=== PATIENT | female | born 1965 | race Caucasian/White ===

== ENCOUNTER 2018-12-29 15:33 | Inpatient (IN) | payer MEDICAID ==
[~2018-12-29] VITALS: Ht 162.6 cm; Wt 68.5 kg
[2018-12-29 15:49] VITALS: BP 139/76
--- NOTE | 2018-12-29 15:58 | NUR ---
PT AMBULATED TO ER BED 05
--- NOTE | 2018-12-29 16:03 | NUR ---
53 Y/O F BIB GRANDDAUGHTER WITH C/O LOW HEMOGLOBIN. PT WAS SENT HER FROM [facility] FOR LOW HEMOGLOBIN AT 6.3. PT STATES SHE HAS BEEN FEELING TIRED X 3 WEEKS AND JUST WANTS TO SLEEP. PT DENIES N/V/D; AAOX4, PERRL, WITH EVEN AND STEADY GAIT; LUNGS CLEAR BL, BREATHING UNLABORED; HR EVEN AND REGULAR, BL PERIPHERAL PULSES PRESENT; BS ACTIVE X4, NO TENDERNESS TO PALPATION, NO HEPATOSPLENOMEGALLY PALPATED, RESONANT TO PERCUSSION; PT DENIES ANY FEVER, CP, SOB, OR COUGH AT THIS TIME; PT STATES 0/10 PAIN AT THIS TIME; VSS; PATIENT POSITIONED FOR COMFORT; HOB ELEVATED; BEDRAILS UP X2; BED DOWN. PMH: ANEMIA RX: MEDROXYPROGESTERONE, AMOX-CLAV ( FOR EAR INFECTION)
[2018-12-29 16:34] LABS: BASOPHILS % (AUTO) 0.3 % (0.0-2.0); EOSINOPHILS # (AUTO) 0.1 K/uL (0-0.4); EOSINOPHILS % (AUTO) 1.8 % (0.0-4.0); LYMPHOCYTES # (AUTO) 2.3 K/uL (2.5-16.5); LYMPHOCYTES % (AUTO) 27.5 % (20.5-51.1); MEAN CORPUSCULAR HEMOGLOBIN 20 pg (27-31); MEAN CORPUSCULAR HGB CONC 29 g/dL (33-37); MEAN CORPUSCULAR VOLUME 68.1 fL (80-94); MONOCYTES # (AUTO) 0.4 K/uL (0.8-1.0); MONOCYTES % (AUTO) 5.2 % (1.7-9.3); NEUTROPHILS # (AUTO) 5.4 K/uL (1.8-7.7); NEUTROPHILS % (AUTO) 65.2 % (42.2-75.2); PLATELET COUNT (AUTO) 477 K/uL (140-450); RED BLOOD CELL COUNT(AUTO) 2.74 MIL/uL (4.20-5.40); RED CELL DISTRIBUTION WIDTH 16.7 % (11.6-13.7); WHITE BLOOD COUNT (AUTO) 8.3 K/uL (4.8-10.8)
[2018-12-29 16:56] LABS: HEMATOCRIT 18.6 % (36-48); HEMOGLOBIN 5.4 g/dL (12.0-16.0)
[2018-12-29 16:57] LABS: ANION GAP 14.9 (8-16); POTASSIUM 3.9 mmol/L (3.5-5.1)
[2018-12-29 16:58] LABS: ALBUMIN 3.6 g/dL (3.4-5.0); CREATININE 0.6 mg/dL (0.6-1.3); TOTAL BILIRUBIN 0.3 mg/dL (0.0-1.0)
--- NOTE | 2018-12-29 17:00 | NUR ---
PT RESTING IN BED, HANDS CROSSED, LEGS UNCROSSED TALKING WITH DAUGHTER. NO S/S OF DISTRESS NOTED.
[2018-12-29 17:02] LABS: PROTHROMBIN TIME 9.6 secs (10.8-13.4)
--- NOTE | 2018-12-29 17:24 | NUR ---
US AT BEDSIDE.
[2018-12-29] MEDS ORDERED: ONDANSETRON 4 MG/2 ML VIAL IM/IVP PRN (17:35)
[2018-12-29] MEDS ORDERED: ACETAMINOPHEN 325 MG TAB PO PRN (17:35)
[2018-12-29] MEDS ORDERED: DOCUSATE SODIUM 100 MG GELCAP PO PRN (17:35)
[2018-12-29] MEDS ORDERED: MORPHINE SULFATE 2 MG/ML SYR IVP PRN (17:35)
[2018-12-29] MEDS ORDERED: OFLO5SOL27 OT (17:36)
[2018-12-29] MEDS ORDERED: MECL-272 PO (17:36)
[2018-12-29] MEDS ORDERED: ONDA-24 PO (17:38)
[2018-12-29] MEDS ORDERED: MEDR10TA33 PO (17:39)
[2018-12-29] MEDS ORDERED: AMOX1TAB15 PO (17:40)
--- NOTE | 2018-12-29 17:48 | NUR ---
FLEB AT BEDSIDE STATING THEY NEED TO "RE-DRAW FOR CONFIRMATION OF BLOOD TYPE."
--- NOTE | 2018-12-29 18:05 | NUR ---
RECEIVED REPORT FROM [facility] EMERGENCY ROOM NURSE FOR CONTINUITY OF CARE. PT IN STABLE CONDITION.
--- NOTE | 2018-12-29 18:09 | NUR ---
Patient will be admitted to care of DR. DOMÍNGUEZ. Admited to TELE. Will go to room 119B. Belongings list completed. Report to TYLER COLVIN.
[2018-12-29 18:10] VITALS: BP 128/56
[2018-12-29 18:12] LABS: APPEARANCE,URINE CLEAR (CLEAR); BILIRUBIN,URINE NEGATIVE (NEGATIVE); BLOOD, URINE NEGATIVE (NEGATIVE); COLOR,URINE YELLOW (YELLOW); LEUKOCYTE ESTERASE ,URINE NEGATIVE (NEGATIVE); NITRITE, URINE NEGATIVE (NEGATIVE); UGLUCOSE NEGATIVE (NEGATIVE)
[2018-12-29 18:13] LABS: CHOL/HDL RATIO 3.4 (1-4.5); MAGNESIUM 2.2 mg/dL (1.8-2.4); PHOSPHORUS 3.7 mg/dL (2.5-4.9)
[2018-12-29 18:17] LABS: BARBITURATE, URINE NEG. ng/ml (NEG <=200); BENZODIAZEPINE, URINE NEG. ng/mL (NEG <=200); CANNABINOID, URINE NEG. ng/mL (NEG <=50); COCAINE, URINE NEG. ng/mL (NEG <=300); OPIATE, URINE NEG. ng/mL (NEG <=2000); PHENCYCLIDINE SCREEN,URINE NEG. ng/mL (NEG <=25)
--- NOTE | 2018-12-29 19:15 | NUR ---
GAVE REPORT TO INSTRUCTOR OF EDUCATION NURSE FOR CONTINUITY OF CARE. PT IN STABLE CONDITION.
[2018-12-29 19:30] VITALS: BP 103/55
--- NOTE | 2018-12-29 19:35 | NUR ---
PATIENT IS AWAKE, ALERT, RESPIRATION EVEN AND UNLABORED ON ROOM AIR. DENIES PAIN AND DISCOMFORT. FAMILY IS AT BEDSIDE. SKIN IS WARM AND DRY. IV IS INTACT AND PATENT. PLAN OF CARE WAS DISCUSSED. ORIENT PATIENT TO ROOM, STAFF, AND CALL LIGHT. BED IS IN LOW POSITION. CALL LIGHT WITHIN REACH. WILL CONTINUE TO MONITOR
[2018-12-29] MEDS ORDERED: MECLIZINE 25 MG TAB PO PRN (20:10)
[2018-12-29] MEDS ORDERED: cefTRIAXone 1,000 MG VIAL ONE (20:44)
[2018-12-29] MEDS: NACL 0.9% 1,000 ML IV SCH (20:52)
[2018-12-29] MEDS: medroxyPROGESTERone 10 MG TAB PO SCH (21:00)
--- NOTE | 2018-12-29 21:00 | NUR ---
MEDICATION PROVERA, NOT AVAILABLE, NOTIFIED PT FAMILY TO BRING MEDICATION TOMORROW, NOTIFIED DR. FRAZIER REGARDING MEDICATION NOT AVAILABLE, STATED UNDERSTANDING, AND OK TO NOT GIVE TONIGHT. PT RESTING ON BED, NO DISTRESS NOTED, CALL LIGHT WITHIN REACH, WILL CONTINUE TO MONITOR.
--- NOTE | 2018-12-29 21:21 | NUR ---
PATIENT WENT TO CT IN STABLE CONDITION
--- NOTE | 2018-12-29 21:40 | NUR ---
PATIENT COMPLAIN OF HEADACHE 7/10 PAIN. PRN NORCO ADMINISTERED. CALL LIGHT WITHIN REACH. WILL CONTINUE TO MONITOR
[2018-12-29] MEDS: HYDROcodone/APAP 7.5/325 MG 1 TAB PO PRN (21:42)
--- NOTE | 2018-12-29 21:45 | NUR ---
PATIENT CAME BACK FROM CT. PATIENT IS STABLE AT THIS TIME NO DISTRESS NOTED. CALL LIGHT WITHIN REACH.
--- NOTE | 2018-12-29 22:00 | NUR ---
FIRST UNIT OF BLOOD TRANSFUSION STARTED. PATIENT VITAL SIGNS STABLE. CALL LIGHT WITHIN REACH
[2018-12-30] VITALS: BP 104/52
--- NOTE | 2018-12-30 01:00 | NUR ---
FIRST UNIT OF BLOOD TRANSFUSION RECEIVED. NO ADVERSE REACTION NOTED. PATIENT IS STABLE. WILL CONTINUE TO MONITOR.
[2018-12-30 04:00] VITALS: BP 155/85
--- NOTE | 2018-12-30 04:52 | NUR ---
PATIENT RECEIVED TOTAL OF 2 UNITS OF BLOOD WITH NO ADVERSE REACTION. DR WAS NOTIFIED. PATIENT IS STABLE. CALL LIGHT WITHIN REACH. WILL CONTINUE TO MONITOR.
[2018-12-30 06:55] LABS: BASOPHILS % (AUTO) 0.4 % (0.0-2.0); EOSINOPHILS # (AUTO) 0.1 K/uL (0-0.4); EOSINOPHILS % (AUTO) 2.5 % (0.0-4.0); HEMATOCRIT 25.5 % (36-48); HEMOGLOBIN 7.9 g/dL (12.0-16.0); LYMPHOCYTES # (AUTO) 2.1 K/uL (2.5-16.5); LYMPHOCYTES % (AUTO) 35.2 % (20.5-51.1); MEAN CORPUSCULAR HEMOGLOBIN 23 pg (27-31); MEAN CORPUSCULAR HGB CONC 31 g/dL (33-37); MEAN CORPUSCULAR VOLUME 75.9 fL (80-94); MONOCYTES # (AUTO) 0.4 K/uL (0.8-1.0); MONOCYTES % (AUTO) 6.5 % (1.7-9.3); NEUTROPHILS # (AUTO) 3.3 K/uL (1.8-7.7); NEUTROPHILS % (AUTO) 55.4 % (42.2-75.2); PLATELET COUNT (AUTO) 361 K/uL (140-450); RED BLOOD CELL COUNT(AUTO) 3.36 MIL/uL (4.20-5.40); RED CELL DISTRIBUTION WIDTH 21.5 % (11.6-13.7); WHITE BLOOD COUNT (AUTO) 5.9 K/uL (4.8-10.8)
--- NOTE | 2018-12-30 07:24 | NUR ---
RECEIVED PT FROM AM SHIFT NURS. PATIENT AWAKE, ALERT. RESPIRATION EVEN, UNLABORED ON ROOM AIR. SKIN DRY AND WARM. IV PATENT AND INTACT. DENIED SOB, DIZZINESS, OR VAGINAL BLEEDING. NO COMPLAINTS OF PAIN AND NO BLEEDING NOTED.PLAN OF CARE WAS DISCUSSED WITH PATIENT AND FAMILY. BED AT LOW POSITION, SIDE RAILS UP. CALL LIGHT WITHIN REACH
[2018-12-30 07:30] LABS: ANION GAP 8.3 (8-16); CARBON DIOXIDE 25.6 mmol/L (21-32); CREATININE 0.7 mg/dL (0.6-1.3); MAGNESIUM 2.2 mg/dL (1.8-2.4); PHOSPHORUS 4.2 mg/dL (2.5-4.9); POTASSIUM 4.9 mmol/L (3.5-5.1); TOTAL BILIRUBIN 0.2 mg/dL (0.0-1.0)
--- NOTE | 2018-12-30 07:33 | NUR ---
ENDORSED PATIENT TO GABRIEL GARCIA NURSE FOR CONTINUITY OF CARE. PATIENT IS STABLE AT THIS TIME.
--- NOTE | 2018-12-30 07:40 | NUR ---
PATIENT WAS AWAKE, ALERT. RESPIRATION EVEN, UNLABOR ON ROOM AIR. SKIN DRY AND WARM. IV PATENT AND INTACT. DENIED SOB, DIZZINESS, OR VAGINAL BLEEDING. COMPLAINED OF HEADACHE 5/10, WILL MEDICATE PER ORDER. PLAN OF CARE WAS DISCUSSED WITH PATIENT AND FAMILY. BED AT LOW POSITION, SIDE RAILS UP. CALL LIGHT WITHIN REACH
[2018-12-30 08:00] VITALS: BP 116/53
[2018-12-30 08:14] LABS: T4 (THYROXINE) 6.2 ug/dL (4.5-12.0)
[2018-12-30 08:14] LABS: FOLIC ACID 10.2 ng/mL (>3.0)
[2018-12-30] MEDS ORDERED: SODIUM FERRIC GLUCONATE 125 MG in NACL 0.9% 100 ML IV SCH ×2 (09:00→13:15)
[2018-12-30] MEDS: medroxyPROGESTERone 10 MG TAB PO SCH ×2 (09:02→21:05)
[2018-12-30] MEDS: LACTOBACILLUS RHAMNOSUS GG 1 EACH CAP PO SCH (09:03)
[2018-12-30] MEDS: HYDROcodone/APAP 7.5/325 MG 1 TAB PO PRN ×2 (09:03→16:32)
--- NOTE | 2018-12-30 09:30 | NUR ---
PATIENT AMBULATED TO BATHROOM UNASSISTED, STEADY GAIT. MEDS WERE GIVEN PER ORDER. NO DISTRESS NOTED AT THIS TIME. FAMILY AT BEDSIDE. CALL LIGHT WITHIN REACH
[2018-12-30 12:00] VITALS: BP 110/57
--- NOTE | 2018-12-30 12:28 | NUR ---
PATIENT WAS AWAKE, EATING LUNCH COMFORTABLY. RESPIRATION EVEN, UNLABOR ON ROOM AIR. DENIED PAIN AT THIS TIME. NO DISTRESS NOTED. FAMILY AT BEDSIDE. CALL LIGHT WITHIN REACH
--- NOTE | 2018-12-30 14:30 | NUR ---
PATIENT WAS SLEEPING COMFORTABLY. RESPIRATION EVEN, UNLABOR ON ROOM AIR. NO DISTRESS NOTED AT THIS TIME
[2018-12-30 16:00] VITALS: BP 108/57
[2018-12-30 16:07] LABS: HEMATOCRIT 24.7 % (36-48); HEMOGLOBIN 7.7 g/dL (12.0-16.0)
--- NOTE | 2018-12-30 16:10 | NUR ---
PATIENT WAS AWAKE, ALERT. RESPIRATION EVEN, UNLABOR ON ROOM AIR. COMPLAINED OF HEADACHE 5/10, WILL MEDICATE PER ORDER. FAMILY AT BEDSIDE. CALL LIGHT WITHIN REACH
[2018-12-30] MEDS: NACL 0.9% 1,000 ML IV SCH (17:35)
--- NOTE | 2018-12-30 18:04 | NUR ---
PATIENT WAS AWAKE, EATING DINNER COMFORTABLY. RESPIRATION EVEN, UNLABOR ON ROOM AIR. DENIED HAVING ANY BM TODAY. NO DISTRESS NOTED. CALL LIGHT WITHIN REACH. FAMILY AT BEDSIDE
--- NOTE | 2018-12-30 19:12 | NUR ---
ENDORSEMENT GIVEN TO THORACIC MEDICINE SPECIALIST NURSE. PATIENT IS STABLE AT THIS TIME
[2018-12-30 20:00] VITALS: BP 105/58
[2018-12-30] MEDS ORDERED: ZOLPIDEM 5 MG TAB PO SCH (21:00)
--- NOTE | 2018-12-30 21:00 | NUR ---
PT MEDICATED, PT TOLERATED MEDS WELL. NO SOB NOTED. WILL CONTINUE TO MONITOR
[2018-12-31] VITALS: BP 106/56
[2018-12-31 04:00] VITALS: BP 105/58
--- NOTE | 2018-12-31 04:30 | NUR ---
PT SLEEPING, NO COMPLAINTS AT THIS TIME. PT IN STABLE CONDITION Addendum: 12/31/18 at 0756 by Molly Castanon RN WRONG TIME
--- NOTE | 2018-12-31 04:31 | NUR ---
PT SLEEPING. NO BLEEDING NOTED. NO COMPLAINTS. PT IN STABLE CONDITION
[2018-12-31] MEDS ORDERED: FERR325E14 PO (05:53)
[2018-12-31] MEDS ORDERED: DOCU-299 PO (05:54)
--- NOTE | 2018-12-31 06:25 | NUR ---
PATIENT HAS BEEN SCREENED AND CATEGORIZED LOW NUTRITION RISK. PATIENT WILL BE SEEN WITHIN 7 DAYS OF ADMISSION. 01/04/19 DAVIDSON BECKHAM MS, RDN
--- NOTE | 2018-12-31 06:26 | NUR ---
PATIENT HAS BEEN SCREENED AND CATEGORIZED MODERATE NUTRITION RISK. PATIENT WILL BE SEEN WITHIN 3-5 DAYS OF ADMISSION. 01/01/19-01/03/19 DAVIDSON BECKHAM MS, RDN
--- NOTE | 2018-12-31 07:01 | NUR ---
NO BM BY PATIENT, NO OCCULT BLOOD COLLECTED
--- NOTE | 2018-12-31 07:23 | NUR ---
ENDORSED PT TO AM SHIFT FOR CONTINUITY OF CARE. PT IN STABLE CONDITION
--- NOTE | 2018-12-31 07:30 | NUR ---
RECEIVED PT FROM PROFESSIONAL GOLF TOURNAMENT PLAYER NURSE, PT IS AWAKE AND LYING ON THE BED WITH SIDE RAILS UP AND CALL LIGHT WITHIN REACH, PT HAS AN IV LINE ON THE RT AC G.20 ON SALINE LOCK, PT DENIES PAIN AND NO SOB NOTED, WILL CONTINUE TO MONITOR PT.
[2018-12-31 07:36] LABS: BASOPHILS % (AUTO) 0.2 % (0.0-2.0); EOSINOPHILS # (AUTO) 0.2 K/uL (0-0.4); EOSINOPHILS % (AUTO) 3.4 % (0.0-4.0); HEMATOCRIT 25.6 % (36-48); HEMOGLOBIN 7.9 g/dL (12.0-16.0); LYMPHOCYTES # (AUTO) 1.4 K/uL (2.5-16.5); LYMPHOCYTES % (AUTO) 20.6 % (20.5-51.1); MEAN CORPUSCULAR HEMOGLOBIN 23 pg (27-31); MEAN CORPUSCULAR HGB CONC 31 g/dL (33-37); MEAN CORPUSCULAR VOLUME 75.3 fL (80-94); MONOCYTES # (AUTO) 0.4 K/uL (0.8-1.0); MONOCYTES % (AUTO) 6.1 % (1.7-9.3); NEUTROPHILS # (AUTO) 4.9 K/uL (1.8-7.7); NEUTROPHILS % (AUTO) 69.7 % (42.2-75.2); PLATELET COUNT (AUTO) 349 K/uL (140-450); RED BLOOD CELL COUNT(AUTO) 3.39 MIL/uL (4.20-5.40); RED CELL DISTRIBUTION WIDTH 21.9 % (11.6-13.7)
[2018-12-31 08:00] VITALS: BP 111/56
[2018-12-31 08:00] LABS: ANION GAP 11.7 (8-16); CARBON DIOXIDE 25.6 mmol/L (21-32); CREATININE 0.7 mg/dL (0.6-1.3); POTASSIUM 4.3 mmol/L (3.5-5.1)
[2018-12-31] MEDS ORDERED: FERROUS SULFATE 325 MG TABEC PO SCH (08:00)
--- NOTE | 2018-12-31 08:00 | NUR ---
PT IS AWAKE AND SEATED ON THE BED WITH DAUGHTER ON THE BEDSIDE, VITAL SIGN TAKEN AND IS WITHIN NORMAL LIMIT, NO SIGN OF DISTRESS NOTED AND WILL MONITOR PT.
[2018-12-31] MEDS ORDERED: ASCO500T45 PO (08:53)
[2018-12-31] MEDS ORDERED: SODIUM FERRIC GLUCONATE 125 MG in NACL 0.9% 100 ML IV SCH (09:00)
[2018-12-31] MEDS: LACTOBACILLUS RHAMNOSUS GG 1 EACH CAP PO SCH (09:24)
[2018-12-31] MEDS: medroxyPROGESTERone 10 MG TAB PO SCH (09:28)
--- NOTE | 2018-12-31 09:30 | NUR ---
PT IS AWAKE AND SEATED ON THE BED WITH DAUGHTER ON THE BEDSIDE, ORAL AND IV MEDICATIONS GIVEN AND PT TOLERATED IT. NO SIGN OF DISTRESS NOTED AND WILL CONTINUE TO MONITOR PT.
[2018-12-31] MEDS ORDERED: AMOX1TAB15 PO (10:57)
[2018-12-31 12:00] VITALS: BP 112/61
--- NOTE | 2018-12-31 14:30 | NUR ---
DISCHARGED TEACHINGS AND INSTRUCTIONS WERE GIVEN TO PT INTERPRETED IN [place] BY THE SENIOR INFORMATION SECURITY ENGINEER, JAYY, SENIOR INFORMATION SECURITY ENGINEER #[id number] AND PT VERBALIZED UNDERSTANDING.
--- NOTE | 2018-12-31 14:45 | NUR ---
DISCHARGED PT VIA WHEELCHAIR WITH DAUGHTER, IV AND ARM BANDS REMOVED, PT IS STABLE AT THIS TIME.
== END 2018-12-31 14:45 | disposition home or self-care (01) | DRG 532 ==
LOC: MED 15:33 → MTU 17:39
PROVIDERS: ADMIT General Practice; ATTEND General Practice
PROC: 30233N1 Transfusion of Nonautologous Red Blood Cells into Peripheral Vein, Percutaneous Approach (ICD-10-PCS; principal; 2018-12-29)
DX: N92.0 Excessive and frequent menstruation with regular cycle (principal); E83.51 Hypocalcemia; D50.9 Iron deficiency anemia, unspecified; H72.92 Unspecified perforation of tympanic membrane, left ear; E78.5 Hyperlipidemia, unspecified; H66.92 Otitis media, unspecified, left ear; N72 Inflammatory disease of cervix uteri; Z90.49 Acquired absence of other specified parts of digestive tract; Z83.3 Family history of diabetes mellitus; Z83.2 Family history of diseases of the blood and blood-forming organs and certain disorders involving the immune mechanism; Z84.89 Family history of other specified conditions
CPT/HCPCS: 36415; 71045; 76856; 80048; 80053; 80305; 81003; 81025; 82140; 82150; 82550; 82607; 82728; 82746; 83036; 83540; 83615; 83690; 83735; 83880; 84100; 84436; 84443; 84479; 84484; 85018; 85025; 85045; 85610; 85730; 86886; 86900; 86901; 86920; 87081; 93005; 99285; J0696; J2916; J7030; J7060; P9016; Q0092